=== PATIENT | female | born 1985 | race Caucasian/White ===

== ENCOUNTER 2016-07-28 12:20 | Emergency (ER) | payer MEDICAID ==
[~2016-07-28] VITALS: Ht 162.6 cm; Wt 99.8 kg
[2016-07-28] MEDS ORDERED: XARE20TA PO (12:53)
[2016-07-28] MEDS ORDERED: ZOLO100T PO (12:54)
[2016-07-28] MEDS ORDERED: GABA-283 PO (12:55)
[2016-07-28] MEDS ORDERED: diphenhydrAMINE INJ 50MG/ML VIAL (J1200) IV STA (13:42)
[2016-07-28] MEDS ORDERED: ONDANSETRON 4MG/2ML VIAL (J2405) IV ONE (13:45)
[2016-07-28] MEDS ORDERED: ASPIRIN 81 MG CHEW TABLET PO ONE (14:00)
[2016-07-28] MEDS ORDERED: HYDROmorphone HCL 1 MG/ML SYRINGE (J1170) IV ONE ×2 (14:00→16:00)
[2016-07-28 14:23] LABS: BASO % 0.1 % (0.0-1.0); CONTROL LINE HCG INT CTR LINE PRESENT; EOS % 0.2 % (0.0-3.0); LARGE UNSTAINED CELL # 0.1 K/mm3 (0.0-0.4); LARGE UNSTAINED CELL % 1.3 % (0.0-4.0); LYMPH # 1.3 K/mm3 (1.5-4.5); LYMPH % 22.3 % (24.0-44.0); MEAN CORPUSCULAR HEMOGLOBIN 30.8 pg (27.0-33.0); MEAN CORPUSCULAR HGB CONC 34.2 g/dl (32.0-36.5); MEAN CORPUSCULAR VOLUME 90.1 fl (80.0-96.0); MONO # 0.3 K/mm3 (0.0-0.8); MONO % 5.2 % (0.0-5.0); NEUTROPHILS # 3.9 K/mm3 (1.8-7.7); PLATELET COUNT, AUTOMATED 245 k/mm3 (150-450); RED CELL DISTRIBUTION WIDTH 13.8 % (11.5-14.5); WHITE BLOOD COUNT 5.5 K/mm3 (4.0-10.0)
[2016-07-28 14:25] LABS: ALBUMIN 3.5 GM/DL (3.2-5.2); ALBUMIN/GLOBULIN RATIO 0.95 (1.00-1.93); ALKALINE PHOSPHATASE 86 U/L (45-117); ALT/SGPT 27 U/L (12-78); ANION GAP 6 MEQ/L (8-16); AST/SGOT 11 U/L (15-37); BILIRUBIN,DIRECT < 0.1 MG/DL (0.0-0.2); BILIRUBIN,TOTAL 0.2 MG/DL (0.2-1.0); BLOOD UREA NITROGEN 9 MG/DL (7-18); CALCIUM LEVEL 8.4 MG/DL (8.5-10.1); CARBON DIOXIDE LEVEL 27 MEQ/L (21-32); CHLORIDE LEVEL 107 MEQ/L (98-107); CREATININE FOR GFR 0.72 MG/DL (0.55-1.02); GLOMERULAR FILTRATION RATE > 60.0 (>60); GLUCOSE, FASTING 100 MG/DL (70-105); POTASSIUM SERUM 3.4 MEQ/L (3.5-5.1); SODIUM LEVEL 140 MEQ/L (136-145); TOTAL PROTEIN 7.2 GM/DL (6.4-8.2)
[2016-07-28 14:29] LABS: INR 0.96
[2016-07-28] MEDS ORDERED: POTASSIUM CHLORIDE 10 MEQ SR TABLET PO ONE (14:45)
--- NOTE | 2016-07-28 14:53 | REP ---
Right lower extremity Duplex Doppler venous ultrasound: Real time compression and duplex Doppler interrogation of the right lower extremity deep venous system is performed. The right common femoral, superficial femoral and popliteal veins are fully compressible with transducer pressure and demonstrate normal spontaneous and phasic flow, without evidence of deep venous thrombosis. Impression: No evidence of deep venous thrombosis of the right lower extremity femoral popliteal venous system. Signed by Darrius Toure MD 07/28/2016 02:45 P
[2016-07-28] MEDS ORDERED: ISOVUE-370 76% 100ML VIAL (Q9967) As Ordered ONE (15:21)
--- NOTE | 2016-07-28 15:48 | REP ---
Clinical: Acute chest pain. Technique: Axial contrast enhanced images from the thoracic inlet to the upper abdomen using 100 ml Isovue 370 intravenous contrast material with coronal and sagittal re-formations. Findings: Satisfactory enhancement of the pulmonary vasculature is achieved and no filling defects are identified to suggest pulmonary embolus. Thoracic aorta is normal caliber without aneurysm or dissection. Heart and pericardium are normal. Bilateral lung way are well aerated and essentially clear without acute pulmonary parenchymal consolidation or atelectasis. No nodule or mass lesion. No pleural effusion/reaction. No pneumothorax. No adenopathy. Impression: No evidence for pulmonary embolus. No acute pleuroparenchymal or mediastinal process. Signed by Sujit Schroeder MD 07/28/2016 03:39 P
[2016-07-28] MEDS ORDERED: HYDR-3713 PO (17:47)
[2016-07-28 17:57] VITALS: BP 115/70
--- NOTE | 2016-07-29 07:19 | ECGEPIP ---
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
== END 2016-07-28 18:10 | disposition home or self-care (01) ==
LOC: M ED 14:41
DX: R07.9 Chest pain, unspecified (principal); M79.604 Pain in right leg
CPT/HCPCS: 71275; 80048; 80076; 82550; 82553; 83690; 83880; 84703; 85025; 85610; 85730; 93005; 93041; 93971; 94760; 96374; 96375; 96376; 99285; J1170; J1200; J2405; Q9967

== ENCOUNTER 2017-03-20 11:03 | Emergency (ER) | payer MEDICAID, OTHER ==
[~2017-03-20] VITALS: Ht 162.6 cm; Wt 100.0 kg
[~2017-03-20 11:03] MED LIST: GABA-283 PO; HYDR-3713 PO; XARE20TA PO; ZOLO100T PO
[2017-03-20] MEDS ORDERED: NS 1,000 ML IV SCH (12:23)
[2017-03-20] MEDS ORDERED: fentaNYL 100 MCG/2 ML INJECTION (J3010) IV ONE (12:30)
[2017-03-20] MEDS ORDERED: ACETAMINOPHEN 325 MG TAB PO ONE (12:30)
[2017-03-20] MEDS ORDERED: IPRATROPIUM 0.5MG/ALBUTEROL 2.5MG INH SOL UD 3ML (DUONEB)(J7620) NEB PRN (12:30)
[2017-03-20] MEDS ORDERED: ONDANSETRON 4MG/2ML VIAL (J2405) IV ONE (12:30)
[2017-03-20] MEDS ORDERED: diphenhydrAMINE INJ 50MG/ML VIAL (J1200) IV STA (12:34)
[2017-03-20 12:43] LABS: BASO % 0.2 % (0.0-1.0); IMMATURE GRANULOCYTE % 0.2 % (0-0); LYMPH # 1.4 10^3/uL (1.5-4.5); LYMPH % 27.4 % (24.0-44.0); MEAN CORPUSCULAR HEMOGLOBIN 31.6 pg (27.0-33.0); MEAN CORPUSCULAR HGB CONC 33.8 g/dl (32.0-36.5); MEAN CORPUSCULAR VOLUME 93.7 fl (80.0-96.0); MONO # 0.4 10^3/uL (0.0-0.8); MONO % 7.6 % (0.0-5.0); NEUTROPHILS # 3.4 10^3/uL (1.8-7.7); NEUTROPHILS % 64.6 % (36.0-66.0); PLATELET COUNT, AUTOMATED 267 10^3/uL (150-450); RED CELL DISTRIBUTION WIDTH 12.8 % (11.5-14.5); WHITE BLOOD COUNT 5.3 10^3/uL (4.0-10.0)
[2017-03-20 12:45] LABS: ABG BASE EXCESS -4.4 (-2.0-2.0); ABG HCO3 19.7 MEQ/L (22.0-26.0); ABG PARTIAL PRESSURE CO2 33.2 mmHg (35.0-45.0); ABG PARTIAL PRESSURE O2 80.6 mmHg (75.0-100.0); ABG STANDARD HCO3 20.8 MEQ/L (22.0-26.0); ABG TOTAL CO2 20.7 MEQ/L (22.0-29.0); ABG pH (ARTERIAL) 7.391 UNITS (7.350-7.450)
[2017-03-20 12:54] LABS: CONTROL LINE HCG INT CTR LINE PRESENT
[2017-03-20 12:55] LABS: INR 0.95
[2017-03-20 13:03] LABS: ALBUMIN 3.8 GM/DL (3.2-5.2); ALBUMIN/GLOBULIN RATIO 1.09 (1.00-1.93); ALKALINE PHOSPHATASE 77 U/L (45-117); ALT/SGPT 28 U/L (12-78); ANION GAP 4 MEQ/L (8-16); AST/SGOT 21 U/L (7-37); BILIRUBIN,DIRECT < 0.1 MG/DL (0.0-0.2); BILIRUBIN,TOTAL 0.3 MG/DL (0.2-1.0); BLOOD UREA NITROGEN 8 MG/DL (7-18); CALCIUM LEVEL 8.7 MG/DL (8.5-10.1); CARBON DIOXIDE LEVEL 30 MEQ/L (21-32); CHLORIDE LEVEL 102 MEQ/L (98-107); CREATININE FOR GFR 0.73 MG/DL (0.55-1.02); GLOMERULAR FILTRATION RATE > 60.0 (>60); GLUCOSE, FASTING 84 MG/DL (70-105); POTASSIUM SERUM 3.5 MEQ/L (3.5-5.1); SODIUM LEVEL 136 MEQ/L (136-145); TOTAL PROTEIN 7.3 GM/DL (6.4-8.2)
[2017-03-20] MEDS ORDERED: ISOVUE-370 76% 100ML VIAL (Q9967) As Ordered ONE (13:10)
[2017-03-20 14:42] VITALS: BP 106/58
--- NOTE | 2017-03-20 14:51 | REP ---
CT ANGIO CHEST: HISTORY: Shortness of breath. CONTRAST: Isovue 370 75 mL. COMPARISON: 07/28/2016 There are no filling defects in the main , right and the left pulmonary arteries or their branches. A 4 mm pleural-based nodule is present in the left lower lobe seen on image #62. The right lung is clear. There is no pleural effusion. There is no hilar or mediastinal mass. The heart is normal in size. IMPRESSION: 1. There is no pulmonary embolism. 2. There is a 4 mm pleural-based nodule in the left lower lobe unchanged compared to the previous study. Signed by Jimbo Preciado MD 03/20/2017 03:04 P
--- NOTE | 2017-03-21 07:24 | ECGEPIP ---
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
--- NOTE | 2017-03-22 06:49 | ED PDOC ---
Post-Departure Follow-Up dr triston garrett faxed formal report of cta for fu Viridiana Lopez MD Mar 22, 2017 06:49
== END 2017-03-20 14:46 | disposition home or self-care (01) ==
LOC: M ED 11:03
DX: R07.9 Chest pain, unspecified (principal); M79.606 Pain in leg, unspecified; D68.51 Activated protein C resistance; G89.29 Other chronic pain; Z79.01 Long term (current) use of anticoagulants; Z91.041 Radiographic dye allergy status; Z88.8 Allergy status to other drugs, medicaments and biological substances; Z88.5 Allergy status to narcotic agent; Z88.0 Allergy status to penicillin; Z88.1 Allergy status to other antibiotic agents; Z98.890 Other specified postprocedural states; Z86.718 Personal history of other venous thrombosis and embolism; Z86.711 Personal history of pulmonary embolism
CPT/HCPCS: 36600; 71275; 80048; 80076; 82550; 82553; 82803; 84703; 85025; 85610; 93000; 93041; 94640; 96374; 96375; 99285; J1200; J2405; J3010; Q9967

== ENCOUNTER 2017-12-27 15:24 | Emergency (ER) | payer OTHER | END 2017-12-27 15:32 | disposition left against medical advice (07) | LOC: M ED 15:24 | DX: Z53.21 Procedure and treatment not carried out due to patient leaving prior to being seen by health care provider (principal) | CPT/HCPCS: 99281 ==

== ENCOUNTER 2023-03-30 11:31 | Emergency (ER) | payer OTHER ==
[~2023-03-30] VITALS: Ht 157.5 cm; Wt 101.8 kg
[~2023-03-30 11:31] MED LIST changes: -GABA-283 PO; +GABA-284 PO; +LAMO200T54; +PRED20TA PO; +QUET400T2
[2023-03-30] MEDS ORDERED: MORPHINE 4 MG/ML 1ML VIAL IV ONE (12:35)
[2023-03-30] MEDS ORDERED: ONDANSETRON 4MG 2ML VIAL IV ONE (12:35)
[2023-03-30] MEDS ORDERED: methylPREDNISolone 125MG 2ML VIAL IV ONE (12:35)
[2023-03-30] MEDS ORDERED: diphenhydrAMINE 50MG/ML VIAL IV STA ×2 (12:44→15:12)
[2023-03-30 13:56] LABS: BASO % 0.4 % (0.0-1.0); EOS # 0.1 10^3/uL (0.0-0.5); EOS % 1.4 % (0.0-3.0); HEMATOCRIT 26.1 % (36.0-47.0); HEMOGLOBIN 8.5 g/dl (12.0-15.5); LYMPH # 1.6 10^3/uL (1.5-5.0); LYMPH % 31.5 % (24.0-44.0); MEAN CORPUSCULAR HGB CONC 32.6 g/dl (32.0-36.5); MEAN CORPUSCULAR VOLUME 92.2 fl (80.0-96.0); MONO # 0.4 10^3/uL (0.0-0.8); MONO % 6.8 % (2.0-8.0); NEUTROPHILS # 3.1 10^3/uL (1.5-8.5); NEUTROPHILS % 59.3 % (36.0-66.0); PLATELET COUNT, AUTOMATED 243 10^3/uL (150-450); RED BLOOD COUNT 2.83 10^6/uL (4.00-5.40); WHITE BLOOD COUNT 5.2 10^3/uL (4.0-10.0)
[2023-03-30 14:07] LABS: INR 1.16; PROTHROMBIN TIME 14.4 SECONDS (12.5-14.5)
[2023-03-30] MEDS ORDERED: ISOVUE-370 76% 100ML VIAL As Ordered ONE (14:16)
[2023-03-30 14:23] LABS: LIPASE 20 U/L (12-53)
[2023-03-30 14:24] LABS: CK-MB VALUE MASS < 1.0 NG/ML (<3.6); CPK CREATINE PHOSPHOKINASE 59 U/L (34-145); MB/CK RELATIVE INDEX 1.69 (< OR =4)
[2023-03-30 14:25] LABS: ALBUMIN 3.2 G/DL (3.2-5.2); ALKALINE PHOSPHATASE 60 U/L (46-116); ALT/SGPT 13 U/L (7.0-40); AST/SGOT 12 U/L (<34); BILIRUBIN,DIRECT 0.1 MG/DL (<0.4); BILIRUBIN,TOTAL 0.4 MG/DL (0.3-1.2); BLOOD UREA NITROGEN 11 MG/DL (9-23); CALCIUM LEVEL 8.3 MG/DL (8.5-10.1); CARBON DIOXIDE LEVEL 21 MMOL/L (20-31); CHLORIDE LEVEL 110 MMOL/L (98-107); GLOMERULAR FILTRATION RATE > 60.0 (>60); GLUCOSE, FASTING 88 MG/DL (60-100); POTASSIUM SERUM 3.6 MMOL/L (3.5-5.1); SODIUM LEVEL 141 MMOL/L (136-145); TOTAL PROTEIN 6.2 G/DL (5.7-8.2)
[2023-03-30 16:31] VITALS: BP 120/67; TEMP 97.8; O2SAT 95
[2023-03-30] MEDS ORDERED: CIPR-249 PO (21:32)
[2023-03-30] MEDS ORDERED: METR-265 PO (21:32)
== END 2023-03-30 16:49 | disposition home or self-care (01) ==
LOC: M ED 11:31
DX: R07.9 Chest pain, unspecified (principal); A09 Infectious gastroenteritis and colitis, unspecified; Z91.041 Radiographic dye allergy status; Z88.1 Allergy status to other antibiotic agents; Z88.8 Allergy status to other drugs, medicaments and biological substances; Z88.5 Allergy status to narcotic agent; Z79.899 Other long term (current) drug therapy; Z79.52 Long term (current) use of systemic steroids
CPT/HCPCS: 70498; 71045; 71275; 74177; 80047; 80048; 80076; 82550; 82553; 83690; 85025; 85610; 87486; 87581; 87633; 87798; 93005; 93041; 94760; 96374; 96375; 99285; J1200; J2405; J2930; Q9967

== ENCOUNTER 2023-04-08 10:18 | Observation (INO) | payer OTHER ==
[~2023-04-08] VITALS: Ht 157.5 cm; Wt 102.8 kg
[~2023-04-08 10:18] MED LIST changes: +CIPR-249 PO; -LAMO200T54; +LAMO200T54 PO; +METR-265 PO; -QUET400T2; +QUET400T2 PO
[2023-04-08] MEDS ORDERED: FAMO20TA5 PO (10:41)
[2023-04-08] MEDS ORDERED: FERR15DR16 PO (10:41)
[2023-04-08] MEDS ORDERED: BACL10TA2 PO (10:41)
[2023-04-08] MEDS ORDERED: METO10TA2 PO (10:41)
[2023-04-08] MEDS ORDERED: ELIQ5TAB PO (10:41)
[2023-04-08] MEDS ORDERED: FOLI1TAB11 PO (10:41)
[2023-04-08] MEDS ORDERED: NS 1,000 ML IV ONE (10:55)
[2023-04-08] MEDS ORDERED: PANTOPRAZOLE 40MG VIAL IV ONE (10:55)
[2023-04-08] MEDS ORDERED: METOCLOPRAMIDE INJ 10MG/2ML VIAL IV ONE (12:00)
[2023-04-08 13:38] LABS: BASO % 0.5 % (0.0-1.0); EOS # 0.1 10^3/uL (0.0-0.5); EOS % 2.2 % (0.0-3.0); HEMATOCRIT 27.2 % (36.0-47.0); HEMOGLOBIN 8.7 g/dl (12.0-15.5); LYMPH % 24.7 % (24.0-44.0); MEAN CORPUSCULAR HEMOGLOBIN 30.5 pg (27.0-33.0); MEAN CORPUSCULAR VOLUME 95.4 fl (80.0-96.0); MONO # 0.2 10^3/uL (0.0-0.8); MONO % 5.6 % (2.0-8.0); NEUTROPHILS # 2.8 10^3/uL (1.5-8.5); NEUTROPHILS % 66.8 % (36.0-66.0); PLATELET COUNT, AUTOMATED 277 10^3/uL (150-450); RED BLOOD COUNT 2.85 10^6/uL (4.00-5.40); WHITE BLOOD COUNT 4.1 10^3/uL (4.0-10.0)
[2023-04-08 13:51] LABS: INR 1.1; PARTIAL THROMBOPLASTIN TIME 25.9 SECONDS (24.8-34.2); PROTHROMBIN TIME 13.8 SECONDS (12.5-14.5)
[2023-04-08 14:05] LABS: LIPASE 16 U/L (12-53)
[2023-04-08 14:07] LABS: ALBUMIN 3.2 G/DL (3.2-5.2); ALKALINE PHOSPHATASE 63 U/L (46-116); ALT/SGPT < 9 U/L (7.0-40); AST/SGOT 11 U/L (<34); BILIRUBIN,TOTAL 0.3 MG/DL (0.3-1.2); BLOOD UREA NITROGEN 10 MG/DL (9-23); CALCIUM LEVEL 8.1 MG/DL (8.5-10.1); CARBON DIOXIDE LEVEL 20 MMOL/L (20-31); CHLORIDE LEVEL 109 MMOL/L (98-107); GLOMERULAR FILTRATION RATE > 60.0 (>60); GLUCOSE, FASTING 87 MG/DL (60-100); POTASSIUM SERUM 3.8 MMOL/L (3.5-5.1); SODIUM LEVEL 139 MMOL/L (136-145); TOTAL PROTEIN 6.1 G/DL (5.7-8.2)
[2023-04-08 14:10] LABS: HCG, SERUM QUALITATIVE NEGATIVE (NEGATIVE)
[2023-04-08 17:19] LABS: HEMATOCRIT 25.2 % (36.0-47.0); HEMOGLOBIN 8.2 g/dl (12.0-15.5); MEAN CORPUSCULAR HEMOGLOBIN 30.6 pg (27.0-33.0); MEAN CORPUSCULAR HGB CONC 32.5 g/dl (32.0-36.5); PLATELET COUNT, AUTOMATED 243 10^3/uL (150-450); RED BLOOD COUNT 2.68 10^6/uL (4.00-5.40); WHITE BLOOD COUNT 4.1 10^3/uL (4.0-10.0)
[2023-04-08] MEDS ORDERED: MED REC IN PROGRESS XX SCH (18:15)
[2023-04-08] MEDS ORDERED: TOPI200T7 PO (19:02)
[2023-04-08] MEDS ORDERED: LORA-1041 PO (19:02)
[2023-04-08] MEDS ORDERED: OXCA300T14 PO (19:02)
[2023-04-08] MEDS ORDERED: CYAN100049 PO (19:02)
[2023-04-08] MEDS ORDERED: PANT-23 PO (19:02)
[2023-04-08] MEDS ORDERED: ALBU8.5H INH (19:02)
[2023-04-08] MEDS ORDERED: HOME MED LIST COMPLETE! XX SCH (19:05)
[2023-04-08] MEDS ORDERED: HEPARIN SOD (PORCINE) 5000UNITS/ML 1ML VIAL/SYRINGE IV PRN (22:25)
[2023-04-08] MEDS ORDERED: MOM 30ML SUSPENSION UDC PO PRN (22:25)
[2023-04-08] MEDS ORDERED: ALBUTEROL 90 MCG/ACT 8GM HFA INHALER INH PRN (22:25)
[2023-04-08] MEDS ORDERED: HEPARIN DRIP 25,000 UNITS in IV 1 EA IV SCH (22:25)
[2023-04-08] MEDS: SERTRALINE 100 MG TAB PO SCH (23:56)
[2023-04-08] MEDS: OXcarbazepine 300 MG TAB PO SCH (23:56)
[2023-04-08] MEDS: TOPIRAMATE (TopAMAX) 100 MG TAB PO SCH (23:56)
[2023-04-08] MEDS: QUEtiapine FUMARATE 200 MG TAB PO SCH (23:56)
[2023-04-09] VITALS (13 sets, daily range): BP systolic 112–145; BP diastolic 57–100; TEMP 97.4–98.1; O2SAT 93–100
[2023-04-09] MEDS ORDERED: BACLOFEN 10 MG TAB PO ONE
[2023-04-09] MEDS ORDERED: GABAPENTIN 400MG CAP PO ONE
[2023-04-09 02:04] LABS: HEMATOCRIT 23.6 % (36.0-47.0); HEMOGLOBIN 7.8 g/dl (12.0-15.5); MEAN CORPUSCULAR HGB CONC 33.1 g/dl (32.0-36.5); MEAN CORPUSCULAR VOLUME 93.7 fl (80.0-96.0); PLATELET COUNT, AUTOMATED 220 10^3/uL (150-450); RED BLOOD COUNT 2.52 10^6/uL (4.00-5.40); WHITE BLOOD COUNT 3.6 10^3/uL (4.0-10.0)
[2023-04-09] MEDS ORDERED: PROMETHAZINE 25MG/ML 1ML VIAL IV ONE ×2 (08:50→17:25)
[2023-04-09] MEDS ORDERED: METOCLOPRAMIDE 10MG TAB PO SCH (09:00)
[2023-04-09] MEDS: BACLOFEN 10 MG TAB PO SCH ×3 (09:24→23:38)
[2023-04-09] MEDS: lamoTRIgine 100MG TAB PO SCH ×3 (09:24→23:40)
[2023-04-09] MEDS: PANTOPRAZOLE 40MG VIAL IV SCH ×2 (09:24→23:37)
[2023-04-09] MEDS: FAMOTIDINE 20 MG TAB PO SCH ×2 (09:24→23:38)
[2023-04-09] MEDS: GABAPENTIN 400MG CAP PO SCH ×3 (09:24→23:38)
[2023-04-09] MEDS: LIDOCAINE 5% (LIDODERM) PATCH TD SCH (09:25)
[2023-04-09 09:44] LABS: HEMATOCRIT 23.7 % (36.0-47.0); HEMOGLOBIN 7.6 g/dl (12.0-15.5); MEAN CORPUSCULAR HEMOGLOBIN 30.3 pg (27.0-33.0); MEAN CORPUSCULAR HGB CONC 32.1 g/dl (32.0-36.5); MEAN CORPUSCULAR VOLUME 94.4 fl (80.0-96.0); PLATELET COUNT, AUTOMATED 217 10^3/uL (150-450); RED BLOOD COUNT 2.51 10^6/uL (4.00-5.40); WHITE BLOOD COUNT 2.7 10^3/uL (4.0-10.0)
[2023-04-09] MEDS ORDERED: diphenhydrAMINE 50MG/ML VIAL IV STA ×2 (10:19→13:58)
[2023-04-09 10:26] LABS: BLOOD UREA NITROGEN 11 MG/DL (9-23); CARBON DIOXIDE LEVEL 19 MMOL/L (20-31); CHLORIDE LEVEL 112 MMOL/L (98-107); CREATININE FOR GFR 0.67 MG/DL (0.55-1.30); GLOMERULAR FILTRATION RATE > 60.0 (>60); GLUCOSE, FASTING 87 MG/DL (60-100); POTASSIUM SERUM 3.8 MMOL/L (3.5-5.1); SODIUM LEVEL 141 MMOL/L (136-145)
[2023-04-09] MEDS ORDERED: LIDOCAINE 1% MDV 20ML VIAL As Ordered ONE (11:33)
[2023-04-09] MEDS ORDERED: PROMETHAZINE 25MG/ML 1ML VIAL IV PRN (12:00)
[2023-04-09] MEDS ORDERED: methylPREDNISolone 125MG 2ML VIAL IV ONE (14:00)
[2023-04-09] MEDS ORDERED: diphenhydrAMINE CREAM 30GM TOP ONE (14:15)
[2023-04-09 14:27] LABS: URINE PREG TEST NEGATIVE (NEGATIVE)
[2023-04-09] MEDS ORDERED: NS 1,000 ML IV ONE (17:25)
[2023-04-09] MEDS ORDERED: HYDROMORPHONE HCL 0.5 MG/ 0.5 ML SYRINGE IV ONE (17:25)
[2023-04-09] MEDS ORDERED: fentaNYL 100 MCG/2 ML INJECTION As Ordered ONE (20:45)
[2023-04-09] MEDS ORDERED: propofoL 200 MG/20 ML VIAL As Ordered ONE (20:45)
[2023-04-09] MEDS ORDERED: LIDOCAINE 2% 100MG/5ML SDV (FOR ANES.) As Ordered ONE (20:45)
[2023-04-09] MEDS ORDERED: FOLIC ACID 1MG TAB PO SCH (21:00)
[2023-04-09] MEDS: BISACODYL 10MG SUPP PR SCH (21:00)
[2023-04-09] MEDS: APIXABAN 5 MG TAB (ELIQUIS) PO SCH (21:00)
[2023-04-09] MEDS ORDERED: MIDAZOLAM INJ 2MG/2ML VIAL As Ordered ONE (21:39)
[2023-04-09] MEDS ORDERED: ONDANSETRON 4MG 2ML VIAL As Ordered ONE (22:02)
[2023-04-09] MEDS ORDERED: SODIUM CHLORIDE 0.9% INJ 10 ML SYR IV PRN (23:20)
[2023-04-09] MEDS: SERTRALINE 100 MG TAB PO SCH (23:38)
[2023-04-09] MEDS: OXcarbazepine 300 MG TAB PO SCH (23:38)
[2023-04-09] MEDS: TOPIRAMATE (TopAMAX) 100 MG TAB PO SCH (23:39)
[2023-04-09] MEDS: QUEtiapine FUMARATE 200 MG TAB PO SCH (23:40)
[2023-04-10] VITALS (13 sets, daily range): BP systolic 98–130; BP diastolic 59–78; TEMP 97.7–100.1; O2SAT 92–98
[2023-04-10] MEDS ORDERED: SODIUM CHLORIDE 0.9% INJ 10 ML SYR IV SCH (06:00)
[2023-04-10] MEDS ORDERED: BISACODYL 5MG TAB PO PRN (08:30)
[2023-04-10] MEDS ORDERED: SENOKOT S TAB PO PRN (08:30)
[2023-04-10] MEDS ORDERED: MOM 30ML SUSPENSION UDC PO PRN (08:30)
[2023-04-10] MEDS ORDERED: NS IV ONE (08:35)
[2023-04-10] MEDS ORDERED: FERRIC CARBOXYMALTOSE IV ONE (08:35)
[2023-04-10] MEDS ORDERED: diphenhydrAMINE 50MG/ML VIAL IV ONE ×2 (08:35→12:00)
[2023-04-10] MEDS ORDERED: diphenhydrAMINE 50MG/ML VIAL IV STA (08:55)
[2023-04-10] MEDS: LIDOCAINE 5% (LIDODERM) PATCH TD SCH (09:00)
[2023-04-10] MEDS ORDERED: FERROUS SULFATE 300MG/5ML UDC LIQUID PO SCH (09:00)
[2023-04-10] MEDS ORDERED: DOXYCYCLINE HYCLATE 100MG TABLET PO SCH (09:00)
[2023-04-10] MEDS ORDERED: PANTOPRAZOLE 40MG TAB (PROTONIX) PO SCH (09:00)
[2023-04-10] MEDS: BISACODYL 10MG SUPP PR SCH (09:00)
[2023-04-10 09:12] LABS: HEMATOCRIT 26.4 % (36.0-47.0); HEMOGLOBIN 8.8 g/dl (12.0-15.5)
[2023-04-10] MEDS: FAMOTIDINE 20 MG TAB PO SCH (10:33)
[2023-04-10] MEDS: BACLOFEN 10 MG TAB PO SCH (10:33)
[2023-04-10] MEDS: APIXABAN 5 MG TAB (ELIQUIS) PO SCH (10:33)
[2023-04-10] MEDS: GABAPENTIN 400MG CAP PO SCH (10:33)
[2023-04-10] MEDS: lamoTRIgine 100MG TAB PO SCH (10:33)
[2023-04-10] MEDS ORDERED: CARA1TAB6 PO (10:59)
[2023-04-10] MEDS ORDERED: OXYC-517 PO (11:02)
[2023-04-10] MEDS ORDERED: SENN-52 PO (11:04)
[2023-04-10] MEDS ORDERED: MILKSUS3 PO (11:04)
[2023-04-10] MEDS ORDERED: DOXY-444 PO (11:17)
[2023-04-10] MEDS ORDERED: BACI1CAP PO (11:17)
[2023-04-10] MEDS ORDERED: FERRIC CARBOXYMALTOSE INJ 750 MG in NS 250 ML (>50kg) IV ONE ×3 (12:00)
[2023-04-10] MEDS ORDERED: HYDROMORPHONE HCL 0.5 MG/ 0.5 ML SYRINGE IV ONE (12:00)
[2023-04-10] MEDS ORDERED: SUCRALFATE SUSP 1GM/10ML UD PO SCH (12:00)
[2023-04-10] MEDS ORDERED: diphenhydrAMINE 50MG CAP PO STA (12:11)
[2023-04-10] MEDS ORDERED: methylPREDNISolone 125MG 2ML VIAL IV ONE (13:00)
[2023-04-10] MEDS ORDERED: NS 500 ML IV ONE (13:00)
[2023-04-10] MEDS ORDERED: MIDODRINE 5 MG TAB PO ONE (13:00)
[2023-04-10] MEDS ORDERED: oxyCODONE 5MG TAB PO ONE (14:00)
[2023-04-10] MEDS ORDERED: FLUCONAZOLE 50MG TABLET PO ONE (14:00)
[2023-04-10 14:40] LABS: HEMATOCRIT 28.1 % (36.0-47.0); HEMOGLOBIN 9.3 g/dl (12.0-15.5)
[2023-04-10] MEDS ORDERED: ASCORBIC ACID 500 MG TAB PO SCH (18:00)
== END 2023-04-10 16:44 | disposition home or self-care (01) ==
LOC: M ED 10:18 → M ED INP 10:19 → M MSPAV 04-09 03:56
PROVIDERS: ADMIT Family Medicine; ATTEND General Practice
DX: K92.0 Hematemesis (principal); K31.89 Other diseases of stomach and duodenum; Z98.890 Other specified postprocedural states; D62 Acute posthemorrhagic anemia; K92.2 Gastrointestinal hemorrhage, unspecified; K44.9 Diaphragmatic hernia without obstruction or gangrene; R10.9 Unspecified abdominal pain; G89.29 Other chronic pain; D68.2 Hereditary deficiency of other clotting factors; Q79.60 Ehlers-Danlos syndrome, unspecified; M47.816 Spondylosis without myelopathy or radiculopathy, lumbar region; K21.9 Gastro-esophageal reflux disease without esophagitis; Z90.49 Acquired absence of other specified parts of digestive tract; Z90.89 Acquired absence of other organs; M54.9 Dorsalgia, unspecified; R68.89 Other general symptoms and signs; Z95.828 Presence of other vascular implants and grafts; A49.01 Methicillin susceptible Staphylococcus aureus infection, unspecified site; T40.2X5A Adverse effect of other opioids, initial encounter; I95.2 Hypotension due to drugs; B37.31 Acute candidiasis of vulva and vagina; E66.9 Obesity, unspecified; Z68.41 Body mass index [BMI] 40.0-44.9, adult; T45.8X5A Adverse effect of other primarily systemic and hematological agents, initial encounter; L29.9 Pruritus, unspecified; M79.7 Fibromyalgia; F43.10 Post-traumatic stress disorder, unspecified; Z86.718 Personal history of other venous thrombosis and embolism; Z86.711 Personal history of pulmonary embolism; Z87.892 Personal history of anaphylaxis; Z91.018 Allergy to other foods; Z88.2 Allergy status to sulfonamides; Z88.8 Allergy status to other drugs, medicaments and biological substances; Z91.041 Radiographic dye allergy status; Z88.0 Allergy status to penicillin; Z88.5 Allergy status to narcotic agent; Z88.1 Allergy status to other antibiotic agents; Z91.013 Allergy to seafood; Z79.899 Other long term (current) drug therapy; Z79.01 Long term (current) use of anticoagulants
CPT/HCPCS: 36410; 36415; 36430; 43239; 74018; 74176; 76937; 80048; 80053; 81001; 83605; 83690; 84703; 85014; 85018; 85025; 85027; 85610; 85730; 86850; 86880; 86900; 86901; 86920; 87086; 87088; 87186; 87635; 88305; 93041; 96361; 96365; 96366; 96375; 96376; 99285; C9113; J1100; J1170; J1200; J2250; J2405; J2550; J2930; J3010; P9016